=== PATIENT | male | born 1995 | race Two or more races ===

== ENCOUNTER 2020-01-08 19:44 | Emergency (ER) | payer MEDICAID ==
[~2020-01-08] VITALS: Ht 182.9 cm; Wt 68.5 kg
[2020-01-08 19:44] VITALS: BP 110/60
--- NOTE | 2020-01-08 19:55 | NUR ---
DR CHACON AT BEDSIDE
--- NOTE | 2020-01-08 20:22 | NUR ---
[facility] ETA [id number]
--- NOTE | 2020-01-08 22:26 | NUR ---
REPORT GIVEN TO TRANSPORT. PT TRANSPORTED.
== END 2020-01-08 22:33 | disposition home or self-care (01) ==
LOC: ER 19:48
DX: R33.9 Retention of urine, unspecified (principal); Z98.890 Other specified postprocedural states